=== PATIENT | male | born 1990 | race American Indian/Alaskan Native ===

== ENCOUNTER → 2025-04-15 11:43 | Outpatient (BNV) | payer SELFPAY | PROVIDERS: Visit Provider Radiology Diagnostic Radiology | DX: M79.672 Pain in left foot (principal) | CPT/HCPCS: 73630 ==

== ENCOUNTER 2025-04-15 12:18 | Emergency (ER) | payer MEDICAID, SELFPAY ==
--- NOTE | ~2025-04-15 | XR_ITS ---
EXAMINATION: XR FOOT, LEFT CLINICAL INFORMATION: pain COMPARISON: None available. TECHNIQUE: AP, lateral, and oblique views of the left foot. FINDINGS: The bones and soft tissues are normal. No fracture. Alignment is anatomic. Joint spaces are maintained. XR/XR foot LT min 3V IMPRESSION: Normal left foot. Electronically signed by: Claude Phipps MD 04/15/2025 12:46 PM EDT
[2025-04-15 12:27] VITALS: BP 138/74; PULSE 104; RESP 16; TEMP 36.4; O2SAT 97; BMI 21.6
--- NOTE | 2025-04-15 13:14 | ED.GENADULT ---
HPI - General Adult General Chief complaint: Extremity Injury, Lower Stated complaint: B/L Foot Pain Time Seen by Provider: 04/15/25 12:54 Source: patient, RN notes reviewed and old records reviewed Mode of arrival: ambulatory Limitations: no limitations History of Present Illness ED Provider: Tomás SHARP narrative: 35-year-old male presents for evaluation of blisters to his left foot. He reports he 1st noticed about 1 week ago. He has 2 blisters in the same area on the outside of his left foot. He reports that there was no injury. He has mild redness around the area of pain He reports that he is a diabetic in his blood sugars are fairly poorly controlled, generally in the 200s Denies any fevers or chills No other complaints or concerns at this time Related Data Previous Rx's ?Medication ?Instructions ?Recorded cephalexin 500 mg tablet 500 mg PO QID #28 tabs 04/15/25 Allergies Allergy/AdvReac Type Severity Reaction Status Date / Time No Known Allergies Allergy Verified 04/15/25 12:29 Review of Systems Constitutional: Constitutional: Denies body ache(s), Denies chills and Denies fever(s) Eyes: Eyes: Denies blurry vision ENT: Denies dizziness and Denies dry mouth Cardiovascular: Cardiovascular: Denies chest pain and Denies dyspnea on exertion Respiratory: Respiratory: Denies cough and Denies dyspnea on exertion Gastrointestinal: Gastrointestinal: Denies abdominal pain Musculoskeletal: Musculoskeletal: Denies back pain Integumentary/Breasts: Skin/Breast: Reports erythema and Reports wounds Neurologic: Denies dizziness Psychiatric: Psychiatric: Denies anxiety PMFSH Social History Social History Advance Directives: No Advance Directives Information Provided: Yes Physical Exam ED Vital Signs: Vital Signs - 24 hr 04/15/25 12:27 Temperature 97.6 F Pulse Rate 104 H Respiratory Rate 16 Blood Pressure 138/74 Pulse Oximetry 97 Oxygen Delivery Method Room Air BMI result Body Mass Index 21.6 Const General: healthy appearing, comfortable, no acute distress, alert and awake Nutritional Appearance: well nourished Orientation/consciousness: patient oriented x3 HENMT Head: Yes normocephalic and Yes atraumatic Eyes Eyelids: Yes eyelids normal Conjunctivae: conjunctivae normal Sclerae: sclerae normal Corneas: corneas normal Pupils: Equal, round and reactive pupils present EOM: EOMs intact bilaterally Neck Neck: Yes full ROM Resp Effort & Inspection: normal respiratory effort, able to speak in complete sentences and not labored Skin General skin exam: elasticity normal Neuro General: patient oriented x3 Cranial nerves: Yes Equal, round and reactive pupils present and Yes Bilaterally intact EOM present Cognition (Neuro): normal cognition Extrem Other: There are 2 small areas, each approximately 8 millimeters in diameter of ulceration with surrounding erythema. No significant induration and fluctuance. Minimal tenderness to palpation. No purulent drainage Medical Decision Making Medical Decision Making MDM Narrative: 35-year-old male presents for evaluation of blisters to his left foot. He denies any trauma to the area. He is a diabetic. He has 2 small areas of the lateral aspect of the left foot. It looks as if his shoes may be too tight or there is something rubbing up against that area of the foot. X-ray is negative for gas or osteomyelitis. There was no evidence of systemic infection the patient has no fever. No streaking lymphangitis or erythema. Advised the patient to make sure he has correct fitting footwear. We will give him a postop shoe. I cleaned in dress the blisters we will discharge him with cephalexin. Differential Diagnosis Differential Diagnoses: The differential diagnosis associated with the presentation includes Blister Abrasion Ulceration Diabetic wound Cellulitis Abscess Independent Interpretation I performed an independent interpretation of an: Plain X-Ray (No evidence of osteomyelitis) Radiology Impression Discussion of test interpretation with radiology: I have reviewed the radiologist's reading. Radiologist Impression: FINDINGS: The bones and soft tissues are normal. No fracture. Alignment is anatomic. Joint spaces are maintained. XR/XR foot LT min 3V IMPRESSION: Normal left foot. Electronically signed by: Claude Phipps MD 04/15/2025 12:46 PM EDT Prescription Management I considered prescription management with: Antibiotic Chronic Conditions Patient?s care impacted by: Diabetes Social Determinants Patient?s care significantly limited by Social Determinants of Health including: Low income and Unemployment Discharge Plan Discharge Clinical Impression: Blister (nonthermal), left foot, initial encounter Patient Disposition: Home, Self-Care Instructions: Blister (ED) Additional Instructions: Your x-ray did not show any concerning findings. Please make sure that your shoes are not too tight and there is nothing rubbing against the outside of your left foot. Keep the area clean and dry. You may apply topical antibiotic daily. Take the cephalexin 4 times daily for 1 week. Follow-up with your primary doctor, return for new or worsening symptoms Prescriptions: New cephalexin 500 mg tablet 500 mg PO QID Qty: 28 0RF Print Language: Ukrainian
[2025-04-15 13:57] VITALS: BP 138/74; PULSE 104; RESP 16; TEMP 36.4; O2SAT 97
== END 2025-04-15 13:58 | disposition home or self-care (01) ==
PROVIDERS: Emergency Provider Emergency Medicine
DX: S90.822A Blister (nonthermal), left foot, initial encounter (principal); X58.XXXA Exposure to other specified factors, initial encounter; Y93.9 Activity, unspecified; Y92.9 Unspecified place or not applicable
CPT/HCPCS: 73630; 99282; 99283